=== PATIENT | male | born 1980 | race Hispanic/Latino ===

== ENCOUNTER 2018-04-03 12:58 | Emergency (ER) | payer SELFPAY ==
--- NOTE | 2018-04-03 13:17 | Emergency Department Report ---
Blank Doc - Documentation Documentation: Comes in for SI reports he has a hx/o of depression and bipolar and PTST. He r eports that he tried to put noose around his neck last night. This initial assessment diagnostic orders/clinical plan/treatment (s) is/Are subject change based on patient's health status, clinical progression and re- assessment by fellow clinical providers in the ED. Further treatment and work-up at subsequent clinical providers discretion. Patient/guardians urged not to elope from s their condition may be serious if not clinically assessed and managed. Inital order include: Psych protocol
[2018-04-03 13:44] LABS: Basophils # (Auto) 0.1 K/mm3 (0.0-0.1); Basophils % (Auto) 1.2 % (0.0-1.8); Eosinophils # (Auto) 0.2 K/mm3 (0.0-0.4); Eosinophils % (Auto) 2.5 % (0.0-4.3); Hemoglobin 14.3 gm/dl (11.8-15.2); Lymphocytes # (Auto) 2.8 K/mm3 (1.2-5.4); Lymphocytes % (Auto) 31.8 % (13.4-35.0); Mean Corpuscular HGB Conc 34 % (32-34); Mean Corpuscular Volume 86 fl (84-94); Monocytes # (Auto) 0.7 K/mm3 (0.0-0.8); Monocytes % (Auto) 8.1 % (0.0-7.3); Platelet Count 245 K/mm3 (140-440); Red Blood Count 4.87 M/mm3 (3.65-5.03); Red Cell Distribution Width 14.1 % (13.2-15.2)
--- NOTE | 2018-04-03 15:26 | Emergency Department Report ---
ED Psych HPI - General Chief Complaint: Psych Stated Complaint: SI Time Seen by Provider: 04/03/18 13:12 Source: patient Mode of arrival: Ambulatory - History of Present Illness Initial Comments: Patient is a 37-year-old male that presents emergent complaints of suicidal ideations and depression. Patient states that he wanted to hang himself last night. Patient states he didn't and he wants to get some help. Patient denies homicidal ideations. Patient denies audiovisual hallucinations. Patient states been quite depressed lately. Patient states he is off all of his medications. MD Complaint: suicidal ideation, feels depressed -: Sudden Associated Psychiatric Symptoms: depression, suicidal ideation History of same: Yes Quality: constant Improves With: medication, therapy Worsens With: none Context: not taking psychiatric Associated Symptoms: denies: confusion, headache, shortness of breath, nausea, vomiting, syncope, insomnia Treatments Prior to Arrival: placed on mental he If Self Harm: admits thoughts of, has plan - Related Data Allergies Allergy/AdvReac Type Severity Reaction Status Date / Time No Known Allergies Allergy Verified 04/03/18 12:59 ED Review of Systems ROS: Stated complaint: SI Other details as noted in HPI Constitutional: denies: chills, fever Eyes: denies: eye pain, eye discharge, vision change ENT: denies: ear pain, throat pain Respiratory: denies: cough, shortness of breath, wheezing Cardiovascular: denies: chest pain, palpitations Endocrine: no symptoms reported Gastrointestinal: denies: abdominal pain, nausea, diarrhea Genitourinary: denies: urgency, dysuria Musculoskeletal: denies: back pain, joint swelling, arthralgia Skin: denies: rash, lesions Neurological: denies: headache, weakness, paresthesias Psychiatric: depression, suicidal thoughts. denies: anxiety, auditory hallucinations, visual hallucinations, homicidal thoughts Hematological/Lymphatic: denies: easy bleeding, easy bruising ED Past Medical Hx - Past Medical History Previous Medical History?: Yes Hx Hypertension: Yes Hx Psychiatric Treatment: Yes (PTSD,bipolar) Additional medical history: "inflamation of fibrosis" - Surgical History Past Surgical History?: Yes Additional Surgical History: tonsillectomy - Family History Family history: no significant - Social History Smoking Status: Current Every Day Smoker Substance Use Type: None ED Physical Exam - General Limitations: No Limitations General appearance: alert, in no apparent distress - Head Head exam: Present: atraumatic, normocephalic - Eye Eye exam: Present: normal appearance - ENT ENT exam: Present: mucous membranes moist - Neck Neck exam: Present: normal inspection - Respiratory Respiratory exam: Present: normal lung sounds bilaterally. Absent: respiratory distress - Cardiovascular Cardiovascular Exam: Present: regular rate, normal rhythm. Absent: systolic mur mur, diastolic murmur, rubs, gallop - GI/Abdominal GI/Abdominal exam: Present: soft, normal bowel sounds - Rectal Rectal exam: Present: deferred - Extremities Exam Extremities exam: Present: normal inspection - Back Exam Back exam: Present: normal inspection - Neurological Exam Neurological exam: Present: alert, oriented X3 - Psychiatric Psychiatric exam: Present: depressed, flat affect, suicidal ideation - Skin Skin exam: Present: warm, dry, intact, normal color. Absent: rash ED Course Vital Signs 04/03/18 04/03/18 04/03/18 13:10 19:56 20:26 Temperature 98.6 F 98.0 F Pulse Rate 68 96 H Respiratory 18 18 18 Rate Blood Pressure 167/95 Blood Pressure 163/98 [Right] O2 Sat by Pulse 98 Oximetry 04/04/18 04/04/18 04/04/18 02:03 08:15 14:42 Temperature 98.3 F 98.9 F Pulse Rate 66 73 Respiratory 18 18 20 Rate Blood Pressure Blood Pressure 151/97 155/92 [Right] O2 Sat by Pulse 97 98 95 Oximetry - Reevaluation(s) Reevaluation #1: Initial evaluation done. Patient placed on 1013. Patient will remain on 1013. Labs were will be reviewed. 04/03/18 13:12 Patient will remain on a 1013. Patient is medically cleared. Mental health has been consulted. Patient will remain on her own until accepted to appropriate psychiatric facility. 04/03/18 16:09 ED Medical Decision Making - Lab Data Result diagrams: 04/03/18 13:22 04/03/18 13:22 - Medical Decision Making Patient is a 37-year-old male Emergent complaints of suicidal ideations and depression. Patient placed on 1013. Patient medically cleared. Patient will remain an ER hold until accepted into appropriate psychiatric facility. - Differential Diagnosis dep. si Critical care attestation.: If time is entered above; I have spent that time in minutes in the direct care of this critically ill patient, excluding procedure time. ED Disposition Clinical Impression: Suicidal ideations Depression Qualifiers: Depression Type: unspecified Qualified Code(s): F32.9 - Major depressive disorder, single episode, unspecified Disposition: [id number]/TX-65 PSY HOSP/PSY UNIT Is pt being admited?: No Does the pt Need Aspirin: No Condition: Stable Referrals: COOPER REED MD [Primary Care Provider] - 3-5 Days Time of Disposition: 16:11
[2018-04-03 16:39] LABS: Albumin 3.8 g/dL (3.9-5); Calcium 8.9 mg/dL (8.4-10.2)
--- NOTE | 2018-04-04 10:54 | Consultation ---
History of Present Illness - Reason for Consult Consult date: 04/04/18 Reason for consult: Mental Health Evaluation Requesting physician: AAMIR BUENO III - Chief Complaint Chief complaint: "I'm depressed and suicidal" - History of Present Psychiatric Illness 37 y.o. white male who presented to the ER for SI's with a plan to hang himself. Today the patient is calm, but guarded during the assessment. He stated that he have nothing to live for. He was asked about his stressors, he was vague with his answers. He does endorse SI's when asked. He confirmed that he has a plan to hand himself. He was asked about medications, he stated that he took Wellbutrin months ago, but stopped because he felt like the medication wasn't "working." He denies HI's and AVH's. He acknowledged erratic sleep and a poor appetite. He denies alcohol consumption (etoh), but admitted to smoking marijuana 2 days ago. Medications and Allergies Allergies Allergy/AdvReac Type Severity Reaction Status Date / Time No Known Allergies Allergy Verified 04/03/18 12:59 Past psychiatric history - Past Medical History Past Medical History: No medical history Past Surgical History: No surgical history - past Psychiatric treatment and history psychiatric treatment history: Inpatient psy services in the past. Denies a fam psy hx. - Social History Social history: other (Homeless) Mental Status Exam - Vital signs Last Vital Signs Temp 98.3 F 04/04/18 02:03 Pulse 66 04/04/18 02:03 Resp 18 04/04/18 08:15 BP 151/97 04/04/18 02:03 Pulse Ox 98 04/04/18 08:15 - Exam Narrative exam: MSE: Appearance: calm Behavior: poor eye contact Speech: regular rate and low tone Mood: "depressed" guarded Affect: flat Thought Process: circumstantial Thought Content: denies HI's and AVH's Motor Activity: lying in bed Cognition: A/O x3 Insight: variable Judgment: poor Results Result Diagrams: 04/03/18 13:22 04/03/18 13:22 Abnormal lab results 04/03/18 04/03/18 04/03/18 Range/Units 13:22 13:22 13:22 [place] % (Auto) 8.1 H (0.0-7.3) % BUN 22 H (9-20) mg/dL Total Protein 6.1 L (6.3-8.2) g/dL Albumin 3.8 L (3.9-5) g/dL Salicylates (2.8-20.0) mg/dL Acetaminophen < 5.0 L (10.0-30.0) ug/mL 04/03/18 Range/Units 13:22 [place] % (Auto) (0.0-7.3) % BUN (9-20) mg/dL Total Protein (6.3-8.2) g/dL Albumin (3.9-5) g/dL Salicylates < 0.3 L (2.8-20.0) mg/dL Acetaminophen (10.0-30.0) ug/mL All other labs normal. Assessment and Plan Assessment and plan: Impression: MDD, Severe type. Cannabis Use DO. Today the patient is calm, but guarded during the assessment. The patient endorse SI's. DDx: R/O Bipolar DO, Substance Induced Mood DO Recommendation/Plan: Continue 1013. Start Remeron 15 mg PO HS for depression. Discussed possible suicidality/medication induced adis with the patient reference Remeron. Dspo: The patient was referred to inpatient psy services. Staffed with Dr Greenberg.
[2018-04-04 11:34] LABS: Bilirubin,Urine NEG (Negative); Blood,Urine SM (Negative); Color,Urine Straw (Yellow); Urobilinogen,Urine < 2.0 mg/dL (<2.0); WBC,Urine < 1.0 /HPF (0.0-6.0)
[2018-04-04 11:43] LABS: Amphetamine Screen,Urine PRESUMPTIVE NEGATIVE; Benzodiazepines Screen,Urine PRESUMPTIVE NEGATIVE; Cocaine Screen,Urine PRESUMPTIVE NEGATIVE; Methadone Screen,Urine PRESUMPTIVE NEGATIVE; Opiate Screen,Urine PRESUMPTIVE NEGATIVE
[2018-04-04 12:11] LABS: Cannabinoid Screen,Urine PRESUMPTIVE POSITIVE
[2018-04-04] MEDS: NORVASC PO SCH (20:02)
[2018-04-04] MEDS: REMERON PO SCH (21:58)
[2018-04-05] MEDS: NORVASC PO SCH (09:58)
--- NOTE | 2018-04-05 12:28 | Progress Note ---
Subjective - Reason for Consult Consult date: 04/05/18 Reason for consult: Psychiatry Follow-up - Chief Complaint Chief complaint: "I''m still depressed" 37 y.o. white male who presented to the ER for SI's with a plan to hang himself. Today the patient is calm and cooperative during the assessment. He stated that he still have SI's. He stated that living isn't "worth it" at this time. He denies HI's and AVH's. He denies ant side effects of his medications. Mental Status Exam - Vital signs Last Vital Signs Temp 98.5 F 04/05/18 01:51 Pulse 89 04/05/18 09:58 Resp 18 04/05/18 08:00 BP 163/99 04/05/18 09:58 Pulse Ox 97 04/05/18 08:00 - Exam Narrative exam: MSE: Appearance: calm Behavior: poor eye contact Speech: regular rate and low tone Mood: "depressed" Affect: flat Thought Process: circumstantial Thought Content: denies HI's and AVH's Motor Activity: lying in bed Cognition: A/O x3 Insight: variable Judgment: poor Assessment and Plan Impression: MDD, Severe type. Cannabis Use DO. Today the patient is calm and cooperative during the assessment. The patient endorse SI's. DDx: R/O Bipolar DO, Substance Induced Mood DO Recommendation/Plan: Continue 1013 and Remeron 15 mg PO HS for depression. Discussed possible suicidality/medication induced adis with the patient reference Remeron. Dspo: The patient was referred to inpatient psy services. Will staff with Dr Greenberg.
[2018-04-05] MEDS: REMERON PO SCH (21:58)
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
[2018-04-06] MEDS: NORVASC PO SCH (10:05)
[2018-04-06] MEDS: REMERON PO SCH (21:48)
[2018-04-07] MEDS: NORVASC PO SCH (10:30)
[2018-04-07] MEDS ORDERED: CATAPRES ONE (20:03)
[2018-04-07] MEDS ORDERED: CATAPRES PO ONE (20:05)
[2018-04-07] MEDS: REMERON PO SCH (22:15)
[2018-04-08] MEDS ORDERED: NORVASC PO ONE (10:00)
--- NOTE | 2018-04-08 12:17 | Progress Note ---
Subjective - Reason for Consult Consult date: 04/08/18 Reason for consult: Psychiatry Follow-up - Chief Complaint Chief complaint: "It's hard for me now"" 37 y.o. white male who presented to the ER for SI's with a plan to hang himself. Today the patient is calm and cooperative during the assessment. He continue to endorse SI's. He stated that he stopped taking his hypertension medication because he didn't want to live anymore. He denies HI's and AVH's. He denies any side effects of his medication. Mental Status Exam - Vital signs Last Vital Signs Temp 97.8 F 04/08/18 07:50 Pulse 64 04/08/18 07:50 Resp 20 04/08/18 07:50 BP 125/73 04/08/18 07:50 Pulse Ox 100 04/08/18 07:50 - Exam Narrative exam: MSE: Appearance: calm. cooperative Behavior: regular eye contact Speech: regular rate and low tone Mood: "depressed" Affect: flat Thought Process: circumstantial Thought Content: denies HI's and AVH's Motor Activity: lying in bed Cognition: A/O x3 Insight: variable to fair Judgment: poor Assessment and Plan Impression: MDD, Severe type. Cannabis Use DO. Additional Dx: PTSD per the patient. Today the patient is calm and cooperative during the assessment. The patient continues to endorse SI's. DDx: R/O Bipolar DO, Substance Induced Mood DO Recommendation/Plan: Continue 1013 and Remeron 15 mg PO HS for depression/PTSD. Discussed possible suicidality/medication induced adis with the patient reference Remeron. Dspo: The patient was accepted at [facility] for inpatient psy services pending transport time Will staff with Dr Diane Crowley.
[2018-04-08] MEDS ORDERED: IBUPROFEN PO ONE (22:48)
[2018-04-08] MEDS: REMERON PO SCH (23:00)
--- NOTE | 2018-04-09 10:17 | Progress Note ---
Subjective - Reason for Consult Consult date: 04/09/18 Reason for consult: Psychiatry Follow-up - Chief Complaint Chief complaint: "I just want to leave"" 37 y.o. white male who presented to the ER for SI's with a plan to hang himself. Today the patient is calm and cooperative during the assessment. Overall, there's no change to the patient's presentation. He continues to endorse SI's. He denies HI's and AVH's. He denies any side effects of his medication. Mental Status Exam - Vital signs Last Vital Signs Temp 98.1 F 04/09/18 09:33 Pulse 74 04/09/18 09:33 Resp 12 04/09/18 09:33 BP 167/103 04/09/18 09:33 Pulse Ox 99 04/09/18 09:33 - Exam Narrative exam: MSE: Appearance: calm. cooperative Behavior: regular eye contact Speech: regular rate and low tone Mood: "depressed" Affect: flat Thought Process: circumstantial Thought Content: denies HI's and AVH's Motor Activity: lying in bed Cognition: A/O x3 Insight: variable to fair Judgment: poor Assessment and Plan Impression: MDD, Severe type. Cannabis Use DO. Additional Dx: PTSD per the patient. Today the patient is calm and cooperative during the assessment. The patient continues to endorse SI's. DDx: R/O Bipolar DO, Substance Induced Mood DO Recommendation/Plan: Continue 1013 and Remeron 15 mg PO HS for depression/PTSD. Discussed possible suicidality/medication induced adis with the patient reference Remeron. Dspo: The patient was accepted at [facility] for inpatient psy services pending transport time Staffed with Dr Zulay Crowley.
[2018-04-09] MEDS: REMERON PO SCH (21:48)
[2018-04-10 09:10] VITALS: BP 189/112
[2018-04-10] MEDS ORDERED: NORVASC PO SCH (10:00)
== END 2018-04-10 12:21 ==
LOC: EEVIPCON 12:58 → ED 12:58
DX: F31.9 Bipolar disorder, unspecified (principal); F12.10 Cannabis abuse, uncomplicated; I10 Essential (primary) hypertension; F43.10 Post-traumatic stress disorder, unspecified; F17.200 Nicotine dependence, unspecified, uncomplicated; Z90.49 Acquired absence of other specified parts of digestive tract
CPT/HCPCS: 36415; 80053; 80307; 81001; 85025; 99285; G0480; 80320